=== PATIENT | female | born 1945 | race Caucasian/White ===

== ENCOUNTER 2018-04-05 03:50 | Observation (INO) | payer OTHER ==
[2018-04-05] MEDS ORDERED: SODIUM CHLORIDE 0.9% 1000 ML INFUS.BAG IV ONE (04:35)
--- NOTE | 2018-04-05 05:59 | PDOC ---
History of Present Illness - General Chief Complaint: Syncope/Near Syncope Stated Complaint: SYNCOPE Time Seen by Provider: 04/05/18 04:18 - History of Present Illness Initial Comments: 04/05/18 06:03 Chief complaint: Syncope This is a 70-year-old woman with past medical history significant for hypertension hyperlipidemia CVA 2 years ago received a flu shot yesterday began feeling weak and achy today. She woke up from sleep this evening went to the bedroom and had a syncopal episode. Does not remember the episode and does not remember clear prodrome prior to the episode. But denies any memory of chest pain shortness of breath or severe belly pain Currently feels weak and achy symptoms are moderate persistent constant with no exacerbating or alleviating factors Past History - Past Medical History Allergies/Adverse Reactions: Allergies Allergy/AdvReac Type Severity Reaction Status Date / Time No Known Drug Allergies Allergy Verified 04/05/18 04:00 Home Medications: Ambulatory Orders Aspirin [ASA -] 81 mg PO DAILY 02/28/16 Atorvastatin Ca [Lipitor] 20 mg PO DAILY 03/11/16 Docusate Sodium [Colace -] 100 mg PO BID capsule 03/13/16 Polyethylene Glycol 3350 [Miralax 119 gm Btl -] 17 gm PO DAILY PRN #0 bottle 03/19 Enalapril Maleate [Vasotec] 1 tab PO DAILY 03/11/18 Loratadine [Claritin] 1 tab PO DAILY PRN 03/11/18 Propylthiouracil 1 tab PO DAILY 03/11/18 Anemia: No Asthma: No Cancer: No Cardiac Disorders: No CVA: Yes (1998) COPD: No CHF: No Dementia: No Diabetes: No GI Disorders: No Disorders: No HTN: Yes Hypercholesterolemia: Yes Liver Disease: No Seizures: No Thyroid Disease: Yes (hyperactive, controlled) - Surgical History Abdominal Surgery: No Appendectomy: No Cardiac Surgery: No Cholecystectomy: No Lung Surgery: No Neurologic Surgery: No Orthopedic Surgery: Yes (FRACTURED FOOT LEFT- surgery-- scar on left ankle) - Suicide/Smoking/Psychosocial Hx Smoking Status: No Smoking History: Never smoked Have you smoked in the past 12 months: No Number of Cigarettes Smoked Daily: 0 Information on smoking cessation initiated: No Hx Alcohol Use: No Drug/Substance Use Hx: No Substance Use Type: None Hx Substance Use Treatment: No Review of Systems - Review of Systems Comments:: 04/05/18 06:03 ROS: A complete review of 10 out of 10 review of systems is taken and is negative apart from what is previously mentioned below and in the HPI. *Physical Exam - Vital Signs Last Vital Signs Temp Pulse Resp BP Pulse Ox 99.4 F 108 H 18 106/82 98 04/05/18 04:25 04/05/18 04:25 04/05/18 04:25 04/05/18 04:25 04/05/18 04:25 - Physical Exam Comments: 04/05/18 06:04 Vitals: Triage Vital signs reviewed General Appearance: no acute distress, well nourished well developed, Head: Atraumatic, Eyes: Pupils equal reactive round, extraocular movement intact Neck: Supple;No Nucal rigidity Chest Wall: Nontender Cardiac: Regular rate and rhythym, no murmurs, no rubs, no gallops, Lungs: Clear to auscultation bilateral, good air movement bilaterally, Abdomen: Soft, non distended, normal bowel sounds, non tender to palpation Extremities: Full range of motion to all extremities, no cyanosis, clubbing, or edema Skin: Warm and dry, no rashes or lesions, no rash, no petechiae Neuro: Cranial Nerves 2-12 grossly intact, Strength intact to all extremities, Sensation intact to all extremities,gait normal Psych: normal mood, normal affect Heart Score/ECG Review - ECG Impressions Comment:: 04/05/18 06:05 EKG performed at 5:15 demonstrates sinus tachycardia [address] elevations noted T-wave inversions. Interpreted by me. ED Treatment Course - LABORATORY CBC & Chemistry Diagram: 04/05/18 04:33 04/05/18 04:33 - RADIOLOGY Radiology Studies Ordered: Category Date Time Status HEAD CT WITHOUT CONTRAST [CT] Stat CT Scan 04/05/18 05:03 Ordered CXRPORT [CHEST X-RAY PORTABLE*] [RAD] Stat Radiology 04/05/18 04:35 Ordered - Medications Given in the ED: ED Medications Discontinued Medications Generic Name Dose Route Start Last Admin Trade Name Freq PRN Reason Stop Dose Admin Sodium Chloride 1,000 ml 04/05/18 04:35 04/05/18 04:35 Normal Saline - IV 04/05/18 04:36 1,000 ml ONCE ONE Administration Medical Decision Making - Medical Decision Making 04/05/18 07:15 This is a 70-year-old woman with past medical history significant for hypertension hyperlipidemia CVA 2 years ago received a flu shot yesterday began feeling weak and achy today. She woke up from sleep this evening went to the bedroom and had a syncopal episode. Does not remember the episode and does not remember clear prodrome prior to the episode. But denies any memory of chest pain shortness of breath or severe belly pain Currently feels weak and achy symptoms are moderate persistent constant with no exacerbating or alleviating factors Check EKG labs head CT urinalysis observe and reassess Reevaluation rectal temperature 100.2 white blood cell count 13.7 Lactic and blood cultures added on is given Head CT influenza pending patient will require observation for syncope and follow-up of blood cultures Chest x-ray pending [address] Clarke to follow-up results reassess and admit *DC/Admit/Observation/Transfer Diagnosis at time of Disposition: Syncope and collapse - Discharge Dispostion Condition at time of disposition: Good Decision to Admit order: Yes - Referrals - Patient Instructions - Post Discharge Activity
[2018-04-05 06:04] LABS: BASO % 0.3 % (0-2.0); EOS % 0.1 % (0-4.5); HEMATOCRIT 41.2 % (32.4-45.2); HEMOGLOBIN 13.2 GM/dL (10.7-15.3); LYMPH % 7.5 % (8-40); MCH 28.5 pg (25.7-33.7); MEAN CELL VOLUME 89.2 fl (80-96); MONO % 3.9 % (3.8-10.2); NEUT % 88.2 % (42.8-82.8); PLATELET COUNT 270 K/MM3 (134-434); RBC 4.61 M/mm3 (3.60-5.2); RDW 13.2 % (11.6-15.6); WHITE BLOOD COUNT 13.7 K/mm3 (4.0-10.0)
[2018-04-05 06:30] LABS: ALK PHOS 74 U/L (45-117); ANION GAP 10 MMOL/L (8-16); BILIRUBIN,TOTAL 1.2 mg/dL (0.2-1); BLOOD UREA NITROGEN 14 mg/dL (7-18); CALCIUM 9.1 mg/dL (8.5-10.1); CHLORIDE 103 mmol/L (98-107); CO2 22 mmol/L (21-32); GLUCOSE,RANDOM 132 mg/dL (74-106); SGOT/AST 27 U/L (15-37); SGPT/ALT 42 U/L (13-61); SODIUM 136 mmol/L (136-145); TOT PROT 7.8 g/dl (6.4-8.2)
[2018-04-05] MEDS ORDERED: ACETAMINOPHEN 1000 MG/100 ML VIAL (NON FORMULARY) IVPB ONE (06:40)
[2018-04-05 06:41] LABS: URINE APPEARANCE CLEAR; URINE BILIRUBIN NEGATIVE (<2.0 mg/dL); URINE COLOR YELLOW; URINE GLUCOSE (UA) NEGATIVE (NEGATIVE); URINE KETONE NEGATIVE (NEGATIVE); URINE LEUK ESTERASE 3+ (NEGATIVE); URINE NITRITE NEGATIVE (NEGATIVE); URINE PROTEIN NEGATIVE (NEGATIVE); URINE UROBILINOGEN NEGATIVE mg/dL (0.2-1.0)
[2018-04-05 06:49] LABS: EPI CELLS RARE /HPF (FEW); URINE MUCUS RARE
--- NOTE | 2018-04-05 07:12 | PDOC ---
*Physical Exam - Vital Signs Last Vital Signs Temp Pulse Resp BP Pulse Ox 99.4 F 108 H 18 106/82 98 04/05/18 04:25 04/05/18 04:25 04/05/18 04:25 04/05/18 04:25 04/05/18 04:25 ED Treatment Course - LABORATORY CBC & Chemistry Diagram: 04/05/18 04:33 04/05/18 04:33 - ADDITIONAL ORDERS Additional order review: Laboratory Results 04/05/18 04/05/18 04/05/18 06:25 04:35 04:33 Sodium 136 Potassium 4.0 Chloride 103 Carbon Dioxide 22 Anion Gap 10 BUN 14 Creatinine 1.0 Creat Clearance w eGFR 54.20 Random Glucose 132 H Calcium 9.1 Total Bilirubin 1.2 H AST 27 ALT 42 Alkaline Phosphatase 74 Troponin I < 0.02 Total Protein 7.8 Albumin 4.0 Urine Color Yellow Urine Appearance Clear Urine pH 8.0 D Ur Specific [place] 1.010 Urine Protein Negative Urine Glucose (UA) Negative Urine Ketones Negative Urine Blood 1+ H Urine Nitrite Negative Urine Bilirubin Negative Urine Urobilinogen Negative Ur Leukocyte Esterase 3+ H Urine WBC (Auto) 5 Urine RBC (Auto) 2 Ur Epithelial Cells Rare Urine Mucus Rare 04/05/18 04:33 RBC 4.61 MCV 89.2 MCHC 32.0 RDW 13.2 MPV 9.0 Neutrophils % 88.2 H D Lymphocytes % 7.5 L D Monocytes % 3.9 Eosinophils % 0.1 D Basophils % 0.3 - Medications Given in the ED: ED Medications Discontinued Medications Generic Name Dose Route Start Last Admin Trade Name Freq PRN Reason Stop Dose Admin Sodium Chloride 1,000 ml 04/05/18 04:35 04/05/18 04:35 Normal Saline - IV 04/05/18 04:36 1,000 ml ONCE ONE Administration Medical Decision Making - Medical Decision Making 04/05/18 07:10 Pt signed out to me from Dr. Rasmussen Pt with hx of htn, hl, cva x 2 presents with complaint of syncope when wakening up this morning. Pt denies associated cp, sob, lightheadedness, palpitations. labs reviewed, noted for mild leukocyotisis with left shift, ua noted awaiting CT head anticipate obs admisson for tele monitoring for eval syncope 04/05/18 09:[address] Pereira agree with obs for syncope Case discussed in detail with admitting physician including history, physical exam and ancillary studies. Admitting physician has assumed care for the patient, will follow all pending diagnostics and will complete the evaluation and treatment. 04/05/18 09:[address] hernandez - consult for sycnope *DC/Admit/Observation/Transfer Diagnosis at time of Disposition: Syncope and collapse - Discharge Dispostion Condition at time of disposition: Good Decision to Admit order: Yes - Referrals - Patient Instructions - Post Discharge Activity
--- NOTE | 2018-04-05 10:43 | EKG ---
Test Reason : Blood Pressure : / mmHG Vent. Rate : 114 BPM Atrial Rate : 114 BPM P-R Int : 166 ms QRS Dur : 076 ms QT Int : 334 ms P-R-T Axes : 028 -25 012 degrees QTc Int : 460 ms SINUS TACHYCARDIA CANNOT RULE OUT ANTERIOR INFARCT , AGE UNDETERMINED NONSPECIFIC ST ABNORMALITY ABNORMAL ECG Confirmed by JESSICA MCHUGH MD ([id number]) on 04/05/2018 10:42:28 AM Referred By: Confirmed By:JESSICA MCHUGH MD
[2018-04-05] MEDS ORDERED: LORATADINE 10 MG TABLET PO PRN (12:05)
[2018-04-05] MEDS ORDERED: POLYETHYLENE GLYCOL 3350 119 GM BTL PO PRN (12:05)
[2018-04-05] MEDS ORDERED: CEFTRIAXONE 1 GM/50 ML BAG ONE (13:34)
--- NOTE | 2018-04-05 13:35 | HP ---
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 The patient is now asymptomatic. She denies change in speech, focal weakness, dizziness, or any other symptoms. She states that her symptoms today were not reminiscent of her prior strokes. 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, ?sceondary to old CVA) Cardiovascular: Yes: HTN, Hyperlipdemia Gastrointestinal: Yes: GERD Endocrine: Yes: Hypothyroidism - Smoking History Smoking history: Never smoked Have you smoked in the past 12 months: No Aproximately how many cigarettes per day: 0 - Alcohol/Substance Use Hx Alcohol Use: No Home Medications - Allergies Allergies/Adverse Reactions: Allergies Allergy/AdvReac Type Severity Reaction Status Date / Time No Known Drug Allergies Allergy Verified 04/05/18 04:00 - Home Medications Home Medications: Ambulatory Orders Aspirin [ASA -] 81 mg PO DAILY 02/28/16 Atorvastatin Ca [Lipitor] 20 mg PO DAILY 03/11/16 Docusate Sodium [Colace -] 100 mg PO BID capsule 03/13/16 Polyethylene Glycol 3350 [Miralax 119 gm Btl -] 17 gm PO DAILY PRN #0 bottle 03/19 Enalapril Maleate [Vasotec] 1 tab PO DAILY 03/11/18 Loratadine [Claritin] 1 tab PO DAILY PRN 03/11/18 Propylthiouracil 1 tab PO DAILY 03/11/18 Family Disease History - Family Disease History Family History: Unremarkable Review of Systems - Review of Systems Constitutional: denies: Chills, Diaphoresis, Fever, Lethargy Eyes: denies: Blind Spots, Blurred Vision, Double Vision, Eye Pain, Photophobia , Recent Change in Vision HENT: denies: Difficult Swallowing, Ear Discharge, Ringing in Ears Neck: denies: Decreased ROM, Lumps Cardiovascular: denies: Chest Pain, Palpitations, Shortness of Breath Respiratory: denies: Cough, Exercise Intolerance, Hemoptysis, Orthopnea Gastrointestinal: denies: Abdominal Pain, Bloating, Constipation, Diarrhea Genitourinary: denies: Burning, Discharge, Dysuria, Flank Pain, Frequency, Incontinence Musculoskeletal: denies: Back Pain, Crepitus, Extremity Pain Integumentary: denies: Blister, Bruising Endocrine: denies: Excessive Sweating, Flushing Hematology/Lymphatic: denies: Easily Bruised, Excessive Bleeding Physical Examination Vital Signs: Vital Signs Temperature 99.4 F 04/05/18 04:25 Pulse Rate 81 04/05/18 11:48 Respiratory Rate 16 04/05/18 11:48 Blood Pressure 153/89 04/05/18 11:48 O2 Sat by Pulse Oximetry (%) 96 04/05/18 11:48 Constitutional: Yes: No Distress. No: Anxious, Cachectic HENT: Yes: Atraumatic, Normocephalic Neck: Yes: Supple, Trachea Midline. No: Decreased ROM, Lymphadenopathy Cardiovascular: Yes: Regular Rate and Rhythm, S1, S2. No: Bruit, JVD, Gallop, Murmur Respiratory: Yes: Regular, CTA Bilaterally Gastrointestinal: Yes: Normal Bowel Sounds, Soft. No: Tenderness, Epigastrium Musculoskeletal: Yes: Back Pain Extremities: No: Calf Tenderness Edema: No Peripheral Pulses: Left Doralis Pedis: 1+, Right Dorsalis Pedis: 1+ Neurological: Yes: Alert, Oriented ...Motor Strength: WNL, LUE, LLE, RUE, RLE Labs: CBC, BMP 04/05/18 04:33 04/05/18 04:33 CBC,CMP WBC 13.7 K/mm3 (4.0-10.0) H 04/05/18 04:33 RBC 4.61 M/mm3 (3.60-5.2) 04/05/18 04:33 Hgb 13.2 GM/dL (10.7-15.3) 04/05/18 04:33 Hct 41.2 % (32.4-45.2) 04/05/18 04:33 MCV 89.2 fl (80-96) 04/05/18 04:33 MCH 28.5 pg (25.7-33.7) 04/05/18 04:33 MCHC 32.0 g/dl (32.0-36.0) 04/05/18 04:33 RDW 13.2 % (11.6-15.6) 04/05/18 04:33 Plt Count 270 K/MM3 (134-434) 04/05/18 04:33 MPV 9.0 fl (7.5-11.1) 04/05/18 04:33 Absolute Neuts (auto) 12.0 K/mm3 (1.5-8.0) H 04/05/18 04:33 Neutrophils % 88.2 % (42.8-82.8) H D 04/05/18 04:33 Lymphocytes % 7.5 % (8-40) L D 04/05/18 04:33 Monocytes % 3.9 % (3.8-10.2) 04/05/18 04:33 Eosinophils % 0.1 % (0-4.5) D 04/05/18 04:33 Basophils % 0.3 % (0-2.0) 04/05/18 04:33 Nucleated RBC % 0 % (0-0) 04/05/18 04:33 Sodium 136 mmol/L (136-145) 04/05/18 04:33 Potassium 4.0 mmol/L (3.5-5.1) 04/05/18 04:33 Chloride 103 mmol/L (98-107) 04/05/18 04:33 Carbon Dioxide 22 mmol/L (21-32) 04/05/18 04:33 Anion Gap 10 MMOL/L (8-16) 04/05/18 04:33 BUN 14 mg/dL (7-18) 04/05/18 04:33 Creatinine 1.0 mg/dL (0.55-1.3) 04/05/18 04:33 Creat Clearance w eGFR 54.20 (>60) 04/05/18 04:33 Random Glucose 132 mg/dL (74-106) H 04/05/18 04:33 Lactic Acid 1.7 mmol/L (0.4-2.0) 04/05/18 06:27 Calcium 9.1 mg/dL (8.5-10.1) 04/05/18 04:33 Total Bilirubin 1.2 mg/dL (0.2-1) H 04/05/18 04:33 AST 27 U/L (15-37) 04/05/18 04:33 ALT 42 U/L (13-61) 04/05/18 04:33 Alkaline Phosphatase 74 U/L (45-117) 04/05/18 04:33 Troponin I < 0.02 ng/ml (0.00-0.05) 04/05/18 04:35 Total Protein 7.8 g/dl (6.4-8.2) 04/05/18 04:33 Albumin 4.0 g/dl (3.4-5.0) 04/05/18 04:33 Imaging - Results X-ray: Report Reviewed (No acute Changes) Cat Scan: Report Reviewed (Head; no acute changes) EKG: Report Reviewed (HR [address] changes sinus Tcahycardia) Problem List - Problems (1) Syncope and collapse Assessment/Plan: Most likely post micturation neurocardiogenic will F/U cardiology input as per patient son she had Carotid Doppler and ECHO at PMD office oin last 1 yr at present non focal neuro exam no c/o chest pain SOB or Palpitation. Code(s): R55 - SYNCOPE AND COLLAPSE (2) Hypertension Assessment/Plan: Well controlled cont all home meds Code(s): I10 - ESSENTIAL (PRIMARY) HYPERTENSION Qualifiers: Hypertension type: essential hypertension Qualified Code(s): I10 - Essential (primary) hypertension (3) HLD (hyperlipidemia) Assessment/Plan: Cont statin F/U Lipid and TSH Code(s): E78.5 - HYPERLIPIDEMIA, UNSPECIFIED (4) UTI (urinary tract infection) Assessment/Plan: + UA no symptoms received ceftriaxone will F/U U culture Code(s): N39.0 - URINARY TRACT INFECTION, SITE NOT SPECIFIED
[2018-04-05] MEDS: CEFTRIAXONE 1 GM in DEXTROSE 5%-WATER - 50 ML IVPB SCH (14:09)
--- NOTE | 2018-04-05 16:15 | CON.CARD ---
Consult Consult Specialty:: cardiology - History of Present Illness Chief Complaint: syncope History of Present Illness: Pt with hx of htn, hl, cva x 2 presents with complaint of syncope when wakening up this morning. Pt denies associated cp, sob, lightheadedness, palpitations. labs reviewed, noted for mild leukocyotisis with left shift, ua noted awaiting CT head anticipate obs admisson for tele monitoring for eval syncope 04/05/18 09:[address] 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, ?sceondary to old CVA) Cardio/Vascular: Yes: HTN, Hyperlipdemia Gastrointestinal: Yes: GERD Endocrine: Yes: Hypothyroidism - Alcohol/Substance Use Hx Alcohol Use: No - Smoking History Smoking history: Never smoked Have you smoked in the past 12 months: No Aproximately how many cigarettes per day: 0 - Social History Usual Living Arrangement: With Spouse Home Medications - Allergies Allergies/Adverse Reactions: Allergies Allergy/AdvReac Type Severity Reaction Status Date / Time No Known Drug Allergies Allergy Verified 04/05/18 04:00 - Home Medications Home Medications: Ambulatory Orders Aspirin [ASA -] 81 mg PO DAILY 02/28/16 Atorvastatin Ca [Lipitor] 20 mg PO DAILY 03/11/16 Docusate Sodium [Colace -] 100 mg PO BID capsule 03/13/16 Polyethylene Glycol 3350 [Miralax 119 gm Btl -] 17 gm PO DAILY PRN #0 bottle 03/19 Enalapril Maleate [Vasotec] 1 tab PO DAILY 03/11/18 Loratadine [Claritin] 1 tab PO DAILY PRN 03/11/18 Propylthiouracil 1 tab PO DAILY 03/11/18 Family Disease History - Family Disease History Family History: Denies Vital Signs: Vital Signs Temperature 99.4 F 04/05/18 04:25 Pulse Rate 81 04/05/18 11:48 Respiratory Rate 16 04/05/18 11:48 Blood Pressure 153/89 04/05/18 11:48 O2 Sat by Pulse Oximetry (%) 96 04/05/18 11:48 - Other Data Labs, Other Data: CBC, BMP 04/05/18 04:33 04/05/18 04:33 Troponin, BNP 04/05/18 04:35 Troponin I < 0.02 Troponin, BNP 04/05/18 04:35 Troponin I < 0.02 Problem List - Problems (1) Syncope and collapse Assessment/Plan: F/u orothostatic VS. Maintain hydration. Serial TNI (1st is < 0.02). Telemetry (EKG: sinus tach; ?anterior wall injury vs lead placement). Carotid artery US. F/u CT head. Code(s): R55 - SYNCOPE AND COLLAPSE (2) HLD (hyperlipidemia) Code(s): E78.5 - HYPERLIPIDEMIA, UNSPECIFIED (3) Hypertension Code(s): I10 - ESSENTIAL (PRIMARY) HYPERTENSION Qualifiers: Hypertension type: essential hypertension Qualified Code(s): I10 - Essential (primary) hypertension
[2018-04-05 18:07] VITALS: BMI 26.8
[2018-04-05] MEDS ORDERED: ATORVASTATIN CA 20 MG TABLET (FP) PO SCH (22:00)
[2018-04-05] MEDS: DOCUSATE SODIUM 100 MG CAPSULE (FP) PO SCH (22:15)
[2018-04-06 06:59] LABS: BASO % 0.4 % (0-2.0); EOS % 2.4 % (0-4.5); HEMATOCRIT 35.3 % (32.4-45.2); HEMOGLOBIN 12.3 GM/dL (10.7-15.3); LYMPH % 23.5 % (8-40); MCHC 34.7 g/dl (32.0-36.0); MEAN CELL VOLUME 89.4 fl (80-96); MEAN PLT VOLUME 9.9 fl (7.5-11.1); MONO % 5.3 % (3.8-10.2); NEUT % 68.4 % (42.8-82.8); PLATELET COUNT 251 K/MM3 (134-434); RBC 3.95 M/mm3 (3.60-5.2); RDW 13.7 % (11.6-15.6); WHITE BLOOD COUNT 8.8 K/mm3 (4.0-10.0)
[2018-04-06 07:12] LABS: ANION GAP 7 MMOL/L (8-16); BLOOD UREA NITROGEN 16 mg/dL (7-18); CALCIUM 8.1 mg/dL (8.5-10.1); CHLORIDE 109 mmol/L (98-107); CO2 23 mmol/L (21-32); CREATININE 0.8 mg/dL (0.55-1.3); GLUCOSE,RANDOM 89 mg/dL (74-106); POTASSIUM 3.6 mmol/L (3.5-5.1); SODIUM 139 mmol/L (136-145)
[2018-04-06] MEDS ORDERED: cefTRIAXone SODIUM 1 GM VIAL ONE (09:16)
[2018-04-06] MEDS ORDERED: DEXTROSE 5%-WATER - 50 ML IVPB ONE (09:16)
[2018-04-06] MEDS: DOCUSATE SODIUM 100 MG CAPSULE (FP) PO SCH (09:36)
[2018-04-06] MEDS: CEFTRIAXONE 1 GM in DEXTROSE 5%-WATER - 50 ML IVPB SCH (09:36)
[2018-04-06] MEDS ORDERED: PT OWN MED DRAWER 7, Y5N ONE (09:40)
[2018-04-06] MEDS ORDERED: PROPYLTHIOURACIL 50 MG TABLET (UD) PO SCH (10:00)
[2018-04-06] MEDS ORDERED: ENALAPRIL MALEATE 10 MG TABLET (FP) PO SCH (10:00)
[2018-04-06] MEDS ORDERED: ASPIRIN 81 MG CHEWABLE TABLETS PO SCH (10:00)
--- NOTE | 2018-04-06 10:36 | PN ---
Progress Note, Physician Chief Complaint: Seen and examined In [place]ian, ROS repeated: She denies CP, SOB, dizziness, palps. She feels fine and wants to go home. Head CT was negative for acute pathology. History of Present Illness: TELE: Reviewed. NSR, no arrhythmias. 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 The patient is now asymptomatic. She denies change in speech, focal weakness, dizziness, or any other symptoms. She states that her symptoms today were not reminiscent of her prior strokes." - Current Medication List Current Medications: Active Medications Aspirin (Asa -) 81 mg PO DAILY [facility] Last Admin: 04/06/18 09:36 Dose: 81 mg Atorvastatin Calcium (Lipitor -) 20 mg PO HS [facility] Last Admin: 04/05/18 22:15 Dose: 20 mg Docusate Sodium (Colace -) 100 mg PO BID [facility] Last Admin: 04/06/18 09:36 Dose: 100 mg Enalapril Maleate (Vasotec -) 10 mg PO DAILY [facility] Last Admin: 04/06/18 09:36 Dose: 10 mg Ceftriaxone Sodium 1 gm/ (Dextrose) 50 mls @ 100 mls/hr IVPB DAILY [facility] Last Admin: 04/06/18 09:36 Dose: 100 mls/hr Loratadine (Claritin -) 10 mg PO DAILY PRN PRN Reason: allergy Polyethylene Glycol (Miralax (For Daily Use) -) 17 gm PO DAILY PRN PRN Reason: CONSTIPATION Propylthiouracil (Ptu -) 50 mg PO DAILY [facility] Last Admin: 04/06/18 09:40 Dose: 50 mg - Objective Vital Signs: Vital Signs Temperature 98.0 F 04/06/18 06:43 Pulse Rate 68 04/06/18 06:43 Respiratory Rate 20 04/06/18 06:43 Blood Pressure 121/64 04/06/18 06:43 O2 Sat by Pulse Oximetry (%) 98 04/05/18 21:00 Constitutional: Yes: Calm Cardiovascular: Yes: Regular Rate and Rhythm Respiratory: Yes: CTA Bilaterally Gastrointestinal: Yes: Soft (nontender) Edema: No Neurological: Yes: Alert, Oriented ...Motor Strength: WNL Psychiatric: Yes: WNL Labs: CBC, BMP 04/06/18 05:30 04/06/18 05:30 - ....Imaging EKG: Image Reviewed Assessment/Plan IMP: Possible UTI Probable vasovagal syncopal episode. REC: 1. Rx Possible UTI as per PMD 2. Telemetry is unremarkable. Head CT negative. No objection to discharge with close outpatient f/u with Dr. Mejia Weekend coverage for Drs. Garcia and Jackie
[2018-04-06 13:20] VITALS: BP 115/56; PULSE 75
[2018-04-06 13:21] VITALS: TEMP 98.2
--- NOTE | 2018-04-06 13:33 | DS ---
Physical Examination Vital Signs: Vital Signs Temperature 98.2 F 04/06/18 10:00 Pulse Rate 75 04/06/18 10:00 Respiratory Rate 14 04/06/18 10:00 Blood Pressure 115/56 L 04/06/18 10:00 O2 Sat by Pulse Oximetry (%) 98 04/06/18 09:00 Constitutional: Yes: No Distress. No: Anxious, comfortable HEENT: Yes: Atraumatic, Normocephalic, no nystagmus Neck: Yes: Supple, Trachea Midline. No: Decreased ROM, Lymphadenopathy Cardiovascular: Yes: Regular Rate and Rhythm, S1, S2. No: Bruit, JVD, Gallop, Murmur Respiratory: Yes: Regular, CTA Bilaterally Gastrointestinal: Yes: Normal Bowel Sounds, Soft. 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 The patient is now asymptomatic. She denies change in speech, focal weakness, dizziness, or any other symptoms. She states that her symptoms today were not reminiscent of her prior strokes. Patient remained asymptomatic no arrhythmia on teleminitor evaluated by Cardiology consult patient had recent cardiac w/u , ECHo carotid Doppler although Carotid Doppler was offered but patient son declined as it was done only 1 yr ago at her Line Crew Supervisor offce, patient is re evaluated by cardiology consult recommonded Dc Home with out patient Cardiology F/U. Condition: Stable - Instructions Diet, Activity, Other Instructions: Orthostatic training Referrals: Ramos Mejia MD [Staff Physician] - 1 Month Disposition: HOME - Home Medications Comprehensive Discharge Medication List: Ambulatory Orders Aspirin [ASA -] 81 mg PO DAILY 04/05/18 Cyclobenzaprine HCl 5 mg PO DAILY 04/05/18 Meclizine HCl 25 mg PO BID 04/05/18 Methimazole 5 mg PO DAILY 04/05/18 Montelukast Na [Singulair -] 10 mg PO HS 04/05/18 Simvastatin 20 mg PO HS 04/05/18 hydrALAZINE HCL [Apresoline -] 50 mg PO DAILY 04/05/18 Amox-Tr/K Cl [Augmentin 500-125mg Tablet -] 1 tab PO BID@0800,1730 #10 tablet
[2018-04-06] MEDS ORDERED: AMOX TR/POT CLAV 500MG/125MG TABLETS (FP) PO SCH (17:30)
== END 2018-04-06 17:04 | disposition home or self-care (01) ==
LOC: JER 03:50 → JERBED 07:16 → J4W 17:30
PROVIDERS: ADMIT Internal Medicine; ATTEND Internal Medicine
PROC: 3E033NZ Introduction of Analgesics, Hypnotics, Sedatives into Peripheral Vein, Percutaneous Approach (ICD-10-PCS; principal; 2018-04-05)
PROC: 3E03329 Introduction of Other Anti-infective into Peripheral Vein, Percutaneous Approach (ICD-10-PCS; 2018-04-05)
PROC: 3E0337Z Introduction of Electrolytic and Water Balance Substance into Peripheral Vein, Percutaneous Approach (ICD-10-PCS; 2018-04-05)
DX: R55 Syncope and collapse (principal); N39.0 Urinary tract infection, site not specified; I10 Essential (primary) hypertension; E78.5 Hyperlipidemia, unspecified; I69.392 Facial weakness following cerebral infarction; E05.90 Thyrotoxicosis, unspecified without thyrotoxic crisis or storm; Z79.82 Long term (current) use of aspirin
CPT/HCPCS: 36415; 70450-TC; 71045-TC-FY; 80048; 80053; 81003; 81015; 83605; 84484; 85025; 87040; 87086; 87804; 93005; 93010; 93880-TC; 96374; 96375; 99285-25; G0378; J0131; J7030

== ENCOUNTER 2019-04-29 06:04 | Day surgery (SDC) | payer OTHER ==
[2019-04-17 14:00] VITALS: BMI 25.6
[2019-04-29] MEDS ORDERED: PROPOFOL 20 ML ONE ×2 (06:56→08:21)
[2019-04-29] MEDS ORDERED: MIDAZOLAM HCL 2 MG/2 ML SINGLE DOSE VIAL ONE (06:56)
[2019-04-29] MEDS ORDERED: EPHEDRINE SULFATE/0.9% NACL/PF 50 MG/10 ML SYRINGE NR ONE (06:58)
[2019-04-29] MEDS ORDERED: SUCCINYLCHOLINE CHLORIDE 200 MG/10 ML SYRINGE ONE (06:58)
[2019-04-29] MEDS ORDERED: BUPIVACAINE HCL/PF 0.5% (5MG/ML) 10 ML VIAL ONE (07:03)
[2019-04-29] MEDS ORDERED: LIDOCAINE 1%/EPI 1:100000 (20 ML MULTI DOSE VIAL) ONE (07:03)
--- NOTE | 2019-04-29 08:02 | HP ---
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) Cardiovascular: Yes: HTN, Hyperlipdemia Gastrointestinal: Yes: GERD Endocrine: Yes: Hypothyroidism - Current Medications Current Medications: Home Medications Medication Instructions Recorded Aspirin [ASA -] 81 mg PO DAILY 04/05/18 Meclizine HCl 25 mg PO DAILY PRN 04/05/18 Methimazole 5 mg PO DAILY 04/05/18 Simvastatin 20 mg PO HS 04/05/18 Amlodipine Besylate [Norvasc -] 5 mg PO DAILY 04/17/19 Calcium Carbonate/Vitamin D3 1 each PO DAILY 04/17/19 [Calcium 600 + Vit D Tablet] Esomeprazole Magnesium [Nexium 20 mg PO DAILY 04/17/19 24Hr] Oxycodone HCl/Acetaminophen 1 tab PO Q6H #20 tablet MDD 4 04/29/19 [Percocet 5-325 mg Tablet] Satellite Physical Exam - Physical Examination Vital Signs: Vital Signs Period Temp Pulse Resp BP Sys/Brothers Pulse Ox Last 24 Hr 98.4 F 99 16 167/88 98 General Appearance: Well Nourished, Well Developed, Alert & Oriented x3 ENT: Clear Lung: Normal air movement Extremities: Other (right knee- + swelling, + ttp ,decr rom, + mcmurrays, nvi) Neurological: Intact, Alert, Oriented Satellite Impression/Plan - Impression/Plan Impression: right knee internal derangement Operative Procedure: right knee arthroscopy Date to be Performed: 04/29/19
[2019-04-29] MEDS ORDERED: LIDOCAINE 1%/EPI 1:100000 (20 ML MULTI DOSE VIAL) INF ONE (08:19)
[2019-04-29] MEDS ORDERED: BUPIVACAINE HCL/PF 0.5% (5 MG/ML) 30 ML VIAL IJ ONE (08:20)
[2019-04-29] MEDS ORDERED: oxyCODONE HCL 5 MG TABLET PO PRN ×2 (08:45)
[2019-04-29] MEDS ORDERED: ONDANSETRON 4 MG/2 ML VIAL IVPUSH PRN (08:45)
[2019-04-29] MEDS ORDERED: LACTATED RINGERS SOLUTION 1,000 ML IV SCH (08:45)
[2019-04-29] MEDS ORDERED: ONDANSETRON 4 MG/2 ML VIAL ONE (08:55)
[2019-04-29 10:05] VITALS: PULSE 84; TEMP 98
[2019-04-29 10:43] VITALS: BP 128/68
--- NOTE | 2019-04-29 11:31 | OP ---
Operative Note - Note: Operative Date: 04/29/19 (karena) Pre-Operative Diagnosis: right knee internal derangement Operation: right knee arthroscopy with PMM, debridement chondroplasty Post-Operative Diagnosis: Same as Pre-op Surgeon: Zachariah Ibanez Anesthesia: General, Local Specimens Removed: shavings Estimated Blood Loss (mls): 5
--- NOTE | 2019-04-29 14:07 | OP ---
DATE OF OPERATION: 04/29/2019 PREOPERATIVE DIAGNOSIS: Internal derangement, right knee. POSTOPERATIVE DIAGNOSIS: Internal derangement, right knee. PROCEDURES: Arthroscopy, right knee, partial medial meniscectomy, and chondroplasty of the trochlea. SURGICAL ATTENDING: Zachariah Ibanez MD ANESTHESIA: LMA. CLOSURE: 4-0 nylon. COMPLICATIONS: None. CONDITION: To recovery room in stable condition. DESCRIPTION OF OPERATIVE PROCEDURE: Patient was taken to the operating room on April 29, 2019. General anesthesia with LMA was administered by the anesthesiologist. prior to the case. The right lower extremity was prepped and draped in the usual sterile fashion. The medial and lateral infrapatellar portal sites were infiltrated with 1% Xylocaine with epinephrine. Both portals were then made with a 15 blade followed by a blunt trocar. The scope was placed in the lateral infrapatellar portal and up into the suprapatellar pouch. The knee was inflated with a cocktail of 10 mL of 1% Xylocaine, 10 mL of 0.5% Marcaine, and 20 mL of arthroscopic saline. After allowing the anesthetic to work in the knee, the procedure was performed. The pouch was visualized to be clean. The medial and lateral gutters were visualized to be clean. The undersurface of the patella was found to be intact. The trochlea had grade 4 changes on its medial surface extending from 0 to about 50 degrees. The rest of the trochlea looked intact. Any loose articular cartilage was debrided using the shaver. With valgus stress on the knee, the medial compartment was entered. The medial meniscus was visualized, probed, and found to have a complex tear of its posterior horn. This was debrided back to smooth stable meniscal tissue using a meniscal biter and arthroscopic shaver. The medial femoral condyle was run and found to have some small changes on the most lateral aspect of the medial femoral condyle near its articulation when it was in full extension. The rest of the condyle and medial tibial plateau appeared to be intact. Any loose articular cartilage was debrided using the shaver. At 90 degrees, the ACL was visualized, probed, and found to be intact. In the figure 4 position, the lateral compartment was entered. The lateral meniscus was visualized, probed, and found to be intact. The lateral femoral condyle was run and found to be intact as was the lateral tibial plateau. The knee was irrigated with copious amounts of irrigation. The portals were closed with 4-0 nylon. Prior to closure, 20 mL of 0.5% Marcaine was infused into the knee for postoperative analgesia. A sterile pressure dressing was placed over the knee. Patient awakened from anesthesia and transferred to recovery in stable condition. No complication. Estimated blood loss negligible. Jackelin ROBLES/[id number]
--- NOTE | 2019-05-02 19:11 | PATH ---
Surgical Pathology Report Patient Name: RAULITO VANCE [facility]. Rec. #: [id number] /Age/Gender: 1945 (Age: 74) / F Account: [id number] Location: [facility] AMBULATORY Taken: 04/29/2019 Received: 04/30/2019 Reported: 05/02/2019 Physicians: Zachariah Ibanez M.D. Specimen(s) Received KNEE SHAVINGS, RIGHT Clinical History Right knee internal derangement Final Diagnosis KNEE SHAVINGS, RIGHT, ARTHROSCOPY: FRAGMENTS OF DENSE FIBROCONNECTIVE TISSUE, ADIPOSE TISSUE, SYNOVIUM, AND NODULAR CALCIFIC AGGREGATES CONSISTENT WITH CHONDROCALCINOSIS. Electronically Signed Eden Otto M.D. Gross Description Received in formalin, labeled "right knee shavings," is a 4.0 x 3.2 x 0.3 cm. aggregate of polanco-yellow soft tissue fragments. A surgical sales representative portion is submitted in one cassette. /04/30/2019 saudi04/30/2019
== END 2019-04-29 10:30 | disposition home or self-care (01) ==
LOC: FASU 06:04
PROVIDERS: ATTEND Orthopaedic Surgery
PROC: 0SBC4ZZ Excision of Right Knee Joint, Percutaneous Endoscopic Approach (ICD-10-PCS; principal; 2019-04-29 08:20)
DX: S83.231A Complex tear of medial meniscus, current injury, right knee, initial encounter (principal); X58.XXXA Exposure to other specified factors, initial encounter; Y93.9 Activity, unspecified; Y92.9 Unspecified place or not applicable; I10 Essential (primary) hypertension; E78.5 Hyperlipidemia, unspecified; E03.9 Hypothyroidism, unspecified; Z86.73 Personal history of transient ischemic attack (TIA), and cerebral infarction without residual deficits
CPT/HCPCS: 88304-TC; 94760

== ENCOUNTER 2021-06-10 04:21 | Day surgery (SDC) | payer OTHER ==
[2021-06-07 12:16] VITALS: BMI 26.5
[2021-06-10] MEDS ORDERED: BUPIVACAINE HCL/PF 0.5% (5MG/ML) 10 ML VIAL IJ ONE (09:14)
[2021-06-10] MEDS ORDERED: IOHEXOL 180 MG/1 ML ML IJ ONE (09:41)
[2021-06-10] MEDS ORDERED: TRIAMCINOLONE ACETONIDE 40 MG/ML 10 ML VIAL IJ ONE (09:41)
[2021-06-10] MEDS ORDERED: LIDOCAINE 1% P/F 10 MG/ML VIAL INF ONE (09:41)
[2021-06-10 10:36] VITALS: BP 158/68; PULSE 90; TEMP 97.7
== END 2021-06-10 10:40 | disposition home or self-care (01) ==
LOC: JASU-SURG 04:21
PROVIDERS: ATTEND Pain Medicine Pain Medicine
PROC: 3E0U33Z Introduction of Anti-inflammatory into Joints, Percutaneous Approach (ICD-10-PCS; 2021-06-10)
PROC: 3E0U3BZ Introduction of Anesthetic Agent into Joints, Percutaneous Approach (ICD-10-PCS; principal; 2021-06-10 08:30)
DX: M16.11 Unilateral primary osteoarthritis, right hip (principal)
CPT/HCPCS: 76000-TC-FY

== ENCOUNTER 2021-08-05 04:15 | Day surgery (SDC) | payer OTHER ==
[2021-08-04 08:01] VITALS: BMI 26.2
[2021-08-05] MEDS ORDERED: BUPIVACAINE HCL/PF 0.75% 10 ML VIAL ONE (07:22)
[2021-08-05] MEDS ORDERED: LIDOCAINE HCL/PF 1% SDV 5ML VIAL ONE (07:22)
[2021-08-05] MEDS ORDERED: LIDOCAINE 1% P/F 10 MG/ML VIAL INF ONE (10:13)
[2021-08-05] MEDS ORDERED: IOHEXOL 180 MG/1 ML ML IJ ONE ×2 (10:14→10:20)
[2021-08-05] MEDS ORDERED: BUPIVACAINE HCL/PF 0.75% 10 ML VIAL NR ONE ×2 (10:15→10:20)
[2021-08-05 10:47] VITALS: BP 127/52; PULSE 66; TEMP 98.8
== END 2021-08-05 11:34 | disposition home or self-care (01) ==
LOC: JASU-SURG 04:15
PROVIDERS: ATTEND Pain Medicine Pain Medicine
PROC: BR16YZZ Fluoroscopy of Lumbar Facet Joint(s) using Other Contrast (ICD-10-PCS; 2021-08-05)
PROC: 3E0T3BZ Introduction of Anesthetic Agent into Peripheral Nerves and Plexi, Percutaneous Approach (ICD-10-PCS; principal; 2021-08-05 11:00)
DX: M47.816 Spondylosis without myelopathy or radiculopathy, lumbar region (principal)
CPT/HCPCS: 76000-TC-FY

== ENCOUNTER 2021-09-02 04:13 | Day surgery (SDC) | payer OTHER ==
[2021-09-01 11:44] VITALS: BMI 26.2
[2021-09-02] MEDS ORDERED: BUPIVACAINE HCL/PF 0.75% 10 ML VIAL ONE (07:23)
[2021-09-02] MEDS ORDERED: DEXAMETHASONE SOD PHOSPHATE 10 MG/1 ML VIAL ONE (07:23)
[2021-09-02] MEDS ORDERED: LIDOCAINE HCL/PF 1% SDV 5ML VIAL ONE (07:23)
[2021-09-02] MEDS ORDERED: IOHEXOL 180 MG/1 ML ML IJ ONE (11:10)
[2021-09-02] MEDS ORDERED: LIDOCAINE HCL 1% PRESERVATIVE FREE - 30ML VIAL IJ ONE (11:12)
[2021-09-02] MEDS ORDERED: BUPIVACAINE HCL/PF 0.75% 10 ML VIAL NR ONE ×2 (11:13→11:15)
[2021-09-02 14:32] VITALS: BP 127/60; PULSE 78; TEMP 98.3
== END 2021-09-02 12:00 | disposition home or self-care (01) ==
LOC: JASU-SURG 04:13
PROVIDERS: ATTEND Pain Medicine Pain Medicine
PROC: 3E0T33Z Introduction of Anti-inflammatory into Peripheral Nerves and Plexi, Percutaneous Approach (ICD-10-PCS; 2021-09-02)
PROC: 3E0T3BZ Introduction of Anesthetic Agent into Peripheral Nerves and Plexi, Percutaneous Approach (ICD-10-PCS; principal; 2021-09-02 10:30)
DX: M47.816 Spondylosis without myelopathy or radiculopathy, lumbar region (principal)
CPT/HCPCS: 76000-TC-FY; J1100

== ENCOUNTER 2021-09-27 04:38 | Day surgery (SDC) | payer OTHER ==
[2021-09-26 12:25] VITALS: BMI 26.5
[2021-09-27] MEDS ORDERED: LIDOCAINE HCL/PF 1% SDV 5ML VIAL ONE (07:21)
[2021-09-27] MEDS ORDERED: BUPIVACAINE HCL/PF 0.75% 10 ML VIAL ONE (07:21)
[2021-09-27] MEDS ORDERED: DEXAMETHASONE SOD PHOSPHATE 10 MG/1 ML VIAL ONE (07:21)
[2021-09-27] MEDS ORDERED: LIDOCAINE HCL/PF 2% SDV 5ML VIAL ONE (07:25)
[2021-09-27] MEDS ORDERED: IOHEXOL 180 MG/1 ML ML IJ ONE (12:45)
[2021-09-27] MEDS ORDERED: LIDOCAINE HCL 1% PRESERVATIVE FREE - 30ML VIAL NR ONE (12:48)
[2021-09-27] MEDS ORDERED: BUPIVACAINE HCL/PF 0.75% 10 ML VIAL NR ONE (12:49)
[2021-09-27] MEDS ORDERED: LIDOCAINE HCL 2% (50ML VIAL) NR ONE (12:50)
[2021-09-27 13:46] VITALS: BP 130/70; PULSE 65; TEMP 97.7
== END 2021-09-27 13:48 | disposition home or self-care (01) ==
LOC: JASU-SURG 04:38
PROVIDERS: ATTEND Pain Medicine Pain Medicine
PROC: 3E0T3TZ Introduction of Destructive Agent into Peripheral Nerves and Plexi, Percutaneous Approach (ICD-10-PCS; principal; 2021-09-27 13:30)
PROC: BR16YZZ Fluoroscopy of Lumbar Facet Joint(s) using Other Contrast (ICD-10-PCS; 2021-09-27 13:30)
DX: M47.816 Spondylosis without myelopathy or radiculopathy, lumbar region (principal); I10 Essential (primary) hypertension; R73.03 Prediabetes
CPT/HCPCS: 76000-TC-FY; J1100

== ENCOUNTER → 2021-12-07 | Day surgery (SDC) | payer OTHER | END | disposition home or self-care (01) | LOC: JRADIR 10:59 | PROVIDERS: ATTEND Internal Medicine Endocrinology, Diabetes & Metabolism | PROC: 0GBG3ZX Excision of Left Thyroid Gland Lobe, Percutaneous Approach, Diagnostic (ICD-10-PCS; principal; 2021-12-07) | DX: E04.1 Nontoxic single thyroid nodule (principal) | CPT/HCPCS: 10021; 76942; 88173; 88305-TC ==

== ENCOUNTER 2023-05-30 20:49 | Inpatient (IN) | payer OTHER ==
[2023-05-30] MEDS ORDERED: SODIUM CHLORIDE 250 ML IV STA ×2 (21:32→22:27)
[2023-05-30] MEDS ORDERED: ACETAMINOPHEN 1000 MG/100 ML BAG IVPB ONE (21:33)
[2023-05-30] MEDS ORDERED: ACETAMINOPHEN INJECTION 100 ML IVPB ONE (21:39)
[2023-05-30 21:54] LABS: HEMATOCRIT 38.4 % (32.4-45.2); HEMOGLOBIN 13.2 G/dL (10.7-15.3); MCH 30.7 pg (25.7-33.7); MCHC 34.3 g/dl (32.0-36.0); MEAN CELL VOLUME 89.4 fl (80-96); MEAN PLT VOLUME 8.1 fl (7.5-11.1); PLATELET COUNT 202.9 10^3/uL (134-434); RBC 4.29 10^6/uL (3.60-5.2); RDW 14.9 % (11.6-15.6); WHITE BLOOD COUNT 6.5 10^3/uL (4.0-10.8)
[2023-05-30 22:07] LABS: PLATELET ESTIMATE ADEQUATE
[2023-05-30 22:12] LABS: ALBUMIN 3.9 g/dl (3.4-5.0); CALCIUM 8.6 mg/dl (8.5-10.1); POTASSIUM 3.9 mmol/L (3.5-5.1); TOT PROT 6.7 g/dl (6.4-8.2)
[2023-05-31] MEDS ORDERED: DOCUSATE SODIUM 100 MG CAPSULE (FP) PO PRN (01:07)
[2023-05-31] MEDS ORDERED: ACETAMINOPHEN 325 MG TABLET (FP) PO PRN (01:07)
[2023-05-31] MEDS ORDERED: REMDESIVIR 200 MG in SODIUM CHLORIDE 250 ML IVPB ONE (01:09)
[2023-05-31] MEDS ORDERED: DEXAMETHASONE SOD PHOSPHATE 4 MG/1 ML VIAL IVPUSH ONE (01:10)
[2023-05-31] MEDS ORDERED: SODIUM CHLORIDE 1,000 ML IV SCH (01:15)
[2023-05-31] MEDS ORDERED: ACETAMINOPHEN 1000 MG/100 ML BAG IVPB PRN (04:00)
[2023-05-31] MEDS ORDERED: BENZOCAINE/MENTHOL (CHLORASEPTIC ) LOZENGE MM PRN (06:51)
[2023-05-31 08:30] LABS: MAGNESIUM 1.7 mg/dL (1.8-2.4); PHOSPHOROUS 3.8 (2.5-4.9)
[2023-05-31] MEDS ORDERED: MECLIZINE HCL 25 MG TABLET (FP) PO SCH (10:00)
[2023-05-31] MEDS: amLODIPine BESYLATE 10 MG TABLET (FP) PO SCH (10:03)
[2023-05-31] MEDS: PANTOPRAZOLE 40 MG TABLET PO SCH (10:03)
[2023-05-31] MEDS: ASPIRIN 81 MG CHEWABLE TABLETS PO SCH (10:04)
[2023-05-31 10:25] LABS: BASO % 0.4 % (0-2.0); HEMATOCRIT 36.8 % (32.4-45.2); HEMOGLOBIN 12.1 GM/dL (10.7-15.3); LYMPH % 16.4 % (8-40); MCH 29.4 pg (25.7-33.7); MEAN CELL VOLUME 89.2 fl (80-96); MEAN PLT VOLUME 8.9 fl (7.5-11.1); MONO % 3.1 % (3.8-10.2); NEUT % 80.1 % (42.8-82.8); PLATELET COUNT 203 10^3/uL (134-434); RBC 4.12 M/mm3 (3.60-5.2); RDW 14.2 % (11.6-15.6); WHITE BLOOD COUNT 4.6 K/mm3 (4.0-10.0)
[2023-05-31] MEDS: OSELTAMIVIR PHOSPHATE 75 MG CAPSULE PO ONE ×2 (12:37→12:38)
[2023-05-31] MEDS: AZITHROMYCIN IVPB 500 MG/250 ML BAG IVPB SCH (12:38)
[2023-05-31] MEDS: CEFTRIAXONE 1 GM in DEXTROSE 5%-WATER - 50 ML IVPB SCH (12:39)
[2023-05-31] MEDS ORDERED: ALBUTEROL SO4 HFA INHALER IH PRN (14:35)
[2023-05-31 15:19] LABS: ALBUMIN 3.7 g/dl (3.4-5.0); BILIRUBIN,TOTAL 0.6 mg/dl (0.2-1); CALCIUM 8.3 mg/dl (8.5-10.1); CREATININE 0.8 mg/dl (0.6-1.3); POTASSIUM 3.9 mmol/L (3.5-5.1); TOT PROT 6.4 g/dl (6.4-8.2)
[2023-05-31] MEDS: ALBUTEROL SO4 HFA INHALER IH SCH ×2 (15:59→21:30)
[2023-05-31] MEDS: methylPREDNISolone NA SUCC 40 MG/1 ML VIAL IVPUSH SCH (15:59)
[2023-05-31] MEDS: guaiFENesin/D-METHORPHAN HB 10 ML UNIT-DOSE CUPS PO PRN (21:30)
[2023-05-31] MEDS: ATORVASTATIN CA 10 MG TABLET (FP) PO SCH (23:00)
[2023-05-31] MEDS: BUDESONIDE/FORMETEROL FUMARATE 160/4.5 mcg INHALER IH SCH (23:47)
[2023-06-01] MEDS ORDERED: ACETAMINOPHEN 325 MG TABLET (FP) PO PRN (04:00)
[2023-06-01] MEDS ORDERED: REMDESIVIR 100 MG in SODIUM CHLORIDE 250 ML IVPB SCH (06:00)
[2023-06-01 09:06] LABS: CALCIUM 8.2 mg/dl (8.5-10.1); CREATININE 0.8 mg/dl (0.6-1.3); POTASSIUM 3.8 mmol/L (3.5-5.1)
[2023-06-01] MEDS: OSELTAMIVIR PHOSPHATE 30 MG CAPSULE PO SCH ×2 (10:52→21:05)
[2023-06-01] MEDS: amLODIPine BESYLATE 10 MG TABLET (FP) PO SCH (10:52)
[2023-06-01] MEDS: PANTOPRAZOLE 40 MG TABLET PO SCH (10:52)
[2023-06-01] MEDS: ASPIRIN 81 MG CHEWABLE TABLETS PO SCH (10:52)
[2023-06-01] MEDS: methylPREDNISolone NA SUCC 40 MG/1 ML VIAL IVPUSH SCH (10:53)
[2023-06-01] MEDS: REMDESIVIR 100 MG in SODIUM CHLORIDE 250 ML IVPB SCH (10:53)
[2023-06-01] MEDS: ALBUTEROL SO4 HFA INHALER IH SCH ×4 (10:55→21:11)
[2023-06-01] MEDS: guaiFENesin/D-METHORPHAN HB 10 ML UNIT-DOSE CUPS PO PRN (11:01)
[2023-06-01] MEDS: AZITHROMYCIN IVPB 500 MG/250 ML BAG IVPB SCH (12:27)
[2023-06-01] MEDS: CEFTRIAXONE 1 GM in DEXTROSE 5%-WATER - 50 ML IVPB SCH (13:51)
[2023-06-01] MEDS: BUDESONIDE/FORMETEROL FUMARATE 160/4.5 mcg INHALER IH SCH ×2 (13:52→21:12)
[2023-06-01] MEDS ORDERED: MAGNESIUM 2GM/50ML STERILE WATER IVPB IVPB ONE (17:11)
[2023-06-01] MEDS: ATORVASTATIN CA 10 MG TABLET (FP) PO SCH (21:06)
[2023-06-02] MEDS: ALBUTEROL SO4 HFA INHALER IH SCH ×4 (07:39→20:00)
[2023-06-02 09:16] VITALS: BMI 22.4
[2023-06-02] MEDS: MAGNESIUM OXIDE 400 MG TABLET (FP) PO SCH (09:31)
[2023-06-02] MEDS: ASPIRIN 81 MG CHEWABLE TABLETS PO SCH (09:31)
[2023-06-02] MEDS: CEFTRIAXONE 1 GM in DEXTROSE 5%-WATER - 50 ML IVPB SCH (09:32)
[2023-06-02] MEDS: OSELTAMIVIR PHOSPHATE 30 MG CAPSULE PO SCH ×2 (09:32→21:58)
[2023-06-02] MEDS: amLODIPine BESYLATE 10 MG TABLET (FP) PO SCH (09:32)
[2023-06-02] MEDS: PANTOPRAZOLE 40 MG TABLET PO SCH (09:32)
[2023-06-02] MEDS: AZITHROMYCIN IVPB 500 MG/250 ML BAG IVPB SCH (09:33)
[2023-06-02] MEDS: methylPREDNISolone NA SUCC 40 MG/1 ML VIAL IVPUSH SCH ×3 (09:41→20:00)
[2023-06-02] MEDS: BUDESONIDE/FORMETEROL FUMARATE 160/4.5 mcg INHALER IH SCH ×2 (09:44→22:01)
[2023-06-02] MEDS: REMDESIVIR 100 MG in SODIUM CHLORIDE 250 ML IVPB SCH (11:10)
[2023-06-02 16:05] LABS: HEMATOCRIT 38.5 % (32.4-45.2); HEMOGLOBIN 13.4 G/dL (10.7-15.3); MCH 30.8 pg (25.7-33.7); MCHC 34.7 g/dl (32.0-36.0); MEAN CELL VOLUME 88.8 fl (80-96); MEAN PLT VOLUME 8.9 fl (7.5-11.1); PLATELET COUNT 192.5 10^3/uL (134-434); RBC 4.34 10^6/uL (3.60-5.2); RDW 14.8 % (11.6-15.6); WHITE BLOOD COUNT 8.2 10^3/uL (4.0-10.8)
[2023-06-02 16:16] LABS: ALBUMIN 3.4 g/dl (3.4-5.0); BILIRUBIN,TOTAL 0.5 mg/dl (0.2-1); CALCIUM 8.1 mg/dl (8.5-10.1); CREATININE 0.8 mg/dl (0.6-1.3); MAGNESIUM 1.8 mg/dL (1.8-2.4); PHOSPHOROUS 3.2 (2.5-4.9); POTASSIUM 3.8 mmol/L (3.5-5.1); TOT PROT 6.1 g/dl (6.4-8.2)
[2023-06-02 16:35] LABS: PLATELET ESTIMATE ADEQUATE
[2023-06-02] MEDS: ATORVASTATIN CA 10 MG TABLET (FP) PO SCH (21:58)
[2023-06-03] MEDS: methylPREDNISolone NA SUCC 40 MG/1 ML VIAL IVPUSH SCH ×3 (03:05→20:35)
[2023-06-03] MEDS: ALBUTEROL SO4 HFA INHALER IH SCH ×2 (08:00→12:25)
[2023-06-03] MEDS: ASPIRIN 81 MG CHEWABLE TABLETS PO SCH (10:06)
[2023-06-03] MEDS: MAGNESIUM OXIDE 400 MG TABLET (FP) PO SCH (10:06)
[2023-06-03] MEDS: PANTOPRAZOLE 40 MG TABLET PO SCH (10:06)
[2023-06-03] MEDS: CEFTRIAXONE 1 GM in DEXTROSE 5%-WATER - 50 ML IVPB SCH (10:06)
[2023-06-03] MEDS: amLODIPine BESYLATE 10 MG TABLET (FP) PO SCH (10:07)
[2023-06-03] MEDS: OSELTAMIVIR PHOSPHATE 30 MG CAPSULE PO SCH ×2 (10:08→21:38)
[2023-06-03] MEDS: BUDESONIDE/FORMETEROL FUMARATE 160/4.5 mcg INHALER IH SCH ×2 (10:09→22:01)
[2023-06-03] MEDS: REMDESIVIR 100 MG in SODIUM CHLORIDE 250 ML IVPB SCH (13:15)
[2023-06-03] MEDS: ATORVASTATIN CA 10 MG TABLET (FP) PO SCH (21:38)
[2023-06-04] MEDS: methylPREDNISolone NA SUCC 40 MG/1 ML VIAL IVPUSH SCH ×3 (02:59→22:39)
[2023-06-04] MEDS: ALBUTEROL SO4 HFA INHALER IH SCH ×6 (07:01→20:15)
[2023-06-04] MEDS: amLODIPine BESYLATE 10 MG TABLET (FP) PO SCH (09:53)
[2023-06-04] MEDS: OSELTAMIVIR PHOSPHATE 30 MG CAPSULE PO SCH ×2 (09:53→22:38)
[2023-06-04] MEDS: MAGNESIUM OXIDE 400 MG TABLET (FP) PO SCH (09:53)
[2023-06-04] MEDS: PANTOPRAZOLE 40 MG TABLET PO SCH (09:54)
[2023-06-04] MEDS: ASPIRIN 81 MG CHEWABLE TABLETS PO SCH (09:56)
[2023-06-04] MEDS: BUDESONIDE/FORMETEROL FUMARATE 160/4.5 mcg INHALER IH SCH ×2 (09:57→22:49)
[2023-06-04] MEDS: CEFTRIAXONE 1 GM in DEXTROSE 5%-WATER - 50 ML IVPB SCH (09:58)
[2023-06-04] MEDS: REMDESIVIR 100 MG in SODIUM CHLORIDE 250 ML IVPB SCH (10:00)
[2023-06-04 13:37] LABS: ALBUMIN 3.3 g/dl (3.4-5.0); BILIRUBIN,TOTAL 0.7 mg/dl (0.2-1); CALCIUM 8.2 mg/dl (8.5-10.1); CREATININE 0.8 mg/dl (0.6-1.3); MAGNESIUM 1.9 mg/dL (1.8-2.4); POTASSIUM 3.6 mmol/L (3.5-5.1)
[2023-06-04] MEDS: ATORVASTATIN CA 10 MG TABLET (FP) PO SCH (22:38)
[2023-06-05] MEDS: MAGNESIUM OXIDE 400 MG TABLET (FP) PO SCH (10:42)
[2023-06-05] MEDS: PANTOPRAZOLE 40 MG TABLET PO SCH (10:42)
[2023-06-05] MEDS: ASPIRIN 81 MG CHEWABLE TABLETS PO SCH (10:43)
[2023-06-05] MEDS: amLODIPine BESYLATE 10 MG TABLET (FP) PO SCH (10:43)
[2023-06-05] MEDS: methylPREDNISolone NA SUCC 40 MG/1 ML VIAL IVPUSH SCH (10:43)
[2023-06-05] MEDS: CEFTRIAXONE 1 GM in DEXTROSE 5%-WATER - 50 ML IVPB SCH (10:43)
[2023-06-05] MEDS: ALBUTEROL SO4 HFA INHALER IH SCH ×3 (10:44→18:32)
[2023-06-05] MEDS: BUDESONIDE/FORMETEROL FUMARATE 160/4.5 mcg INHALER IH SCH (10:45)
[2023-06-05 15:02] VITALS: BP 117/50; PULSE 76; RESP 18; TEMP 97.8
[2023-06-06] MEDS ORDERED: AMOX TR/POT CLAV 875MG/125MG TABLETS (FP) PO SCH (08:00)
[2023-06-06] MEDS ORDERED: predniSONE 20 MG TABLET (UD) PO SCH (10:00)
== END 2023-06-05 20:32 | disposition home or self-care (01) | DRG 177 ==
LOC: FER 20:49 → MERGE 05-31 01:23 → FM/S 05-31 01:23 → OBSVTOIN 06-05 07:46
PROVIDERS: ADMIT Internal Medicine; ATTEND Internal Medicine
DX: U07.1 COVID-19 (principal); J10.08 Influenza due to other identified influenza virus with other specified pneumonia; E87.1 Hypo-osmolality and hyponatremia; E11.9 Type 2 diabetes mellitus without complications; I10 Essential (primary) hypertension; E78.5 Hyperlipidemia, unspecified; K21.9 Gastro-esophageal reflux disease without esophagitis; E83.42 Hypomagnesemia; J10.1 Influenza due to other identified influenza virus with other respiratory manifestations; J98.01 Acute bronchospasm
CPT/HCPCS: 0241U-QW; 36415; 71045-TC-FY; 80048; 80053; 81003; 82436; 82533; 82550; 82553; 83735; 83930; 83935; 84100; 84133; 84155; 84165; 84300; 84443; 85025; 85027; 87899; 93005; 94761; 99285-25; G0378; J0248

== ENCOUNTER 2023-10-04 04:38 | Day surgery (SDC) | payer OTHER ==
[2023-10-01 11:58] VITALS: BMI 31.4
[2023-10-04 09:35] VITALS: TEMP 98
[2023-10-04 09:59] VITALS: BP 124/55; PULSE 72; RESP 20
== END 2023-10-04 10:45 | disposition home or self-care (01) ==
LOC: JASU-ENDO 04:38
PROVIDERS: ATTEND Internal Medicine Gastroenterology
PROC: 0DJD8ZZ Inspection of Lower Intestinal Tract, Via Natural or Artificial Opening Endoscopic (ICD-10-PCS; principal; 2023-10-04 09:00)
DX: Z12.11 Encounter for screening for malignant neoplasm of colon (principal); K64.4 Residual hemorrhoidal skin tags; K57.30 Diverticulosis of large intestine without perforation or abscess without bleeding; I10 Essential (primary) hypertension

== ENCOUNTER 2025-03-05 05:46 | Day surgery (SDC) | payer OTHER ==
[2025-03-02 15:34] VITALS: BMI 30.7
[2025-03-05] MEDS ORDERED: DEXAMETHASONE SOD PHOSPHATE 10 MG/1 ML VIAL ONE (07:35)
[2025-03-05] MEDS: IOHEXOL 180 MG/1 ML ML IJ ONE ×2 (09:37)
[2025-03-05] MEDS: LIDOCAINE HCL 1% PRESERVATIVE FREE - 30ML VIAL IJ ONE ×2 (09:37)
[2025-03-05] MEDS: DEXAMETHASONE SOD PHOSPHATE 10 MG/1 ML VIAL IVPUSH ONE ×2 (09:37)
[2025-03-05 10:32] VITALS: BP 168/71; PULSE 83; RESP 18; TEMP 98.2
[2025-03-05] MEDS ORDERED: ACETAMINOPHEN 500 MG TABLET (FP) PO PRN (20:43)
== END 2025-03-05 10:20 | disposition home or self-care (01) ==
LOC: JASU-SURG 05:46
PROVIDERS: ATTEND Pain Medicine Pain Medicine
PROC: 3E0R3BZ Introduction of Anesthetic Agent into Spinal Canal, Percutaneous Approach (ICD-10-PCS; 2025-03-05)
PROC: 3E0R33Z Introduction of Anti-inflammatory into Spinal Canal, Percutaneous Approach (ICD-10-PCS; principal; 2025-03-05 08:45)
DX: M54.16 Radiculopathy, lumbar region (principal)
CPT/HCPCS: 76000-TC-FY; J1100